=== PATIENT | female | born 1990 | race African-American/Black ===

== ENCOUNTER 2022-12-07 13:11 | Emergency (ER) | payer OTHER ==
[~2022-12-07] VITALS: Ht 162.6 cm; Wt 51.3 kg
--- NOTE | 2022-12-07 13:16 | NUR ---
Dr. Self at bedside. MSE in progress.
[2022-12-07] MEDS ORDERED: ACETAMINOPHEN 325 MG TABLET PO ONE (13:30)
[2022-12-07] MEDS ORDERED: ACETAMINOPHEN 325 MG TABLET ONE (13:34)
[2022-12-07] MEDS ORDERED: CYCLOBENZAPRINE HCL 10 MG TABLET ONE (13:34)
[2022-12-07] MEDS: CYCLOBENZAPRINE HCL 10 MG TABLET PO ONE ×2 (13:38→13:43)
[2022-12-07 13:50] LABS: HEMATOCRIT 40.3 % (31.2-41.9); MEAN CORPUSCULAR HEMOGLOBIN 31.2 uug (24.7-32.8); MEAN CORPUSCULAR VOLUME 91.6 fL (75.5-95.3); PLATELET COUNT (AUTO) 347 K/uL (179-408)
--- NOTE | 2022-12-07 13:52 | NUR ---
PT taken down for CT.
[2022-12-07 14:00] LABS: BILIRUBIN,TOTAL 0.6 mg/dL (0.2-1.0); CREATININE 0.8 mg/dL (0.6-1.3); POTASSIUM 3.8 mmol/L (3.5-5.1); TOTAL PROTEIN, SERUM 7.9 g/dL (6.4-8.2)
[2022-12-07 14:04] LABS: *BILIRUBIN,URIN 1+ (NEGATIVE); *BLOOD, URINE 3+ (NEGATIVE); *CLARITY,URINE CLEAR (CLEAR); *COLOR,URINE YELLOW (YELLOW); *KETONES,URINE NEGATIVE (NEGATIVE); *UROBILINOGEN,URINE 0.2 E.U./dl (NORMAL); LEUKOCYTE ESTERASE ,URINE NEGATIVE (NEGATIVE); NITRITE, URINE NEGATIVE (NEGATIVE); PH,URINE 5.5 (5.0-8.0); UGLUCOSE NEGATIVE (NEGATIVE)
--- NOTE | 2022-12-07 14:04 | NUR ---
Patient basck from CT scan.
[2022-12-07 14:05] LABS: *URINE HCG, QUAL NEG (NEGATIVE)
[2022-12-07 14:20] LABS: BACTERIA,URINE FEW /HPF (NONE SEEN); SQUAMOUS EPITHELIAL CELL,UR MODERATE /HPF (NONE SEEN); WBC,URINE 0-3 /HPF (0-3)
[2022-12-07] MEDS ORDERED: CYCL5TAB PO (14:44)
[2022-12-07 15:07] VITALS: BP 118/70
--- NOTE | 2022-12-07 15:08 | NUR ---
patient alert, oriented x4 left er ambulatory with steady gait no pain.
== END 2022-12-07 15:09 | disposition home or self-care (01) ==
LOC: ER 13:11
DX: S16.1XXA Strain of muscle, fascia and tendon at neck level, initial encounter (principal); V49.69XA Unspecified car occupant injured in collision with other motor vehicles in traffic accident, initial encounter; Y92.410 Unspecified street and highway as the place of occurrence of the external cause; R31.29 Other microscopic hematuria
CPT/HCPCS: 36415; 71046; 72125; 84703; 85025; A4663